=== PATIENT | female | born 2000 | race Caucasian/White ===

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

== ENCOUNTER 2021-12-02 22:33 | Emergency (ER) | payer BC, SELFPAY ==
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
[2021-12-02 22:36] VITALS: BP 153/93; PULSE 98; RESP 16; TEMP 36.4; O2SAT 100
[2021-12-02] MEDS: ACETAMINOPHEN 500 MG TABLET 1000 MG PO (22:57)
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
[2021-12-02 23:26] VITALS: BP 150/72; PULSE 90; RESP 18; O2SAT 98
== END 2021-12-02 23:28 | disposition home or self-care (01) ==
LOC: ANHED 23:14
PROVIDERS: Emergency Provider Emergency Medicine; PCP Pediatrics Adolescent Medicine
DX: S60.221A Contusion of right hand, initial encounter (principal); Y04.0XXA Assault by unarmed brawl or fight, initial encounter; Y92.512 Supermarket, store or market as the place of occurrence of the external cause
CPT/HCPCS: 73130; 99283; A9270